=== PATIENT | male | born 1980 | race Caucasian/White ===

== ENCOUNTER 2017-03-05 20:17 | Emergency (ER) | payer SELFPAY ==
--- NOTE | 2017-03-05 20:34 | EDM.PDOC ---
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 Past medical history: As per history of present illness and as reviewed below otherwise noncontributory. Surgical history: As per history of present illness and as reviewed below otherwise noncontributory. Social history: No reported history of drug or alcohol abuse. Family history: As per history of present illness and as reviewed below otherwise noncontributory. Physical exam: Alert and oriented male answering questions appropriately speaking in full sentences HEENT: Atraumatic, normocehpalic, pupils reactive, negative for conjunctival pallor or scleral icterus, mucous membranes moist, throat clear, neck supple, nontender, trachea midline. Lungs: Clear to auscultation, breath sounds equal bilaterally, chest non tender. Heart: S1S2, regular, negative for clicks, rubs, or JVD. Abdomen: Soft, nondistended, nontender. Negative for masses or hepatossplenmegaly. Negative for costovertebral tenderness. Pelvis: Stable nontender. Genitourinary: Deferred. Rectal: Deferred Extremities: Atraumatic, negative for cords or calf pain. Neurovascular unremarkable. Neuro: Awake, alert, oriented. Cranial nerves II through XII unremarkable. Cerebellum unremarkable. Motor and sensory unremarkable throughout. Exam nonfocal. Patient is refusing sutures at this time. Mastisol was utilized then Steri- Strips. Good alignment was achieved Diagnostics: [X-ray thumb] negative for any fracture or dislocation Therapeutics: [] Impression: [Burst laceration] Plan: [Keep area clean and dry do not remove the Steri-Strips left them come loose on her own We'll have referral to Dr. Norma Ryan for follow up] Ibuprofen as needed for discomfort Definitive disposition and diagnosis as appropriate pending reevaluation and review of above. Onset: Today, Sudden Duration: Hour(s): Location: Reports: Upper Extremity, Right Quality: Reports: Stabbing Severity: Moderate Improves with: Reports: None Worsens with: Reports: None Associated Symptoms: Reports: No Other Symptoms Right Hand Pain Score (Numeric/FACES): 2 - Related Data Allergies Allergy/AdvReac Type Severity Reaction Status Date / Time Penicillins Allergy Other Verified 03/05/17 20:26 Home Meds: Home Meds . [No Known Home Meds] 03/05/17 [History] Past Medical History HEENT History: Reports: None Cardiovascular History: Reports: None Respiratory History: Reports: None Gastrointestinal History: Reports: None Genitourinary History: Reports: None Musculoskeletal History: Reports: None Neurological History: Reports: None Psychiatric History: Reports: None Endocrine/Metabolic History: Reports: None Hematologic History: Reports: None Immunologic History: Reports: None Oncologic (Cancer) History: Reports: None Dermatologic History: Reports: None - Infectious Disease History Infectious Disease History: Reports: None - Past Surgical History Head Surgeries/Procedures: Reports: None HEENT Surgical History: Reports: Tonsillectomy GI Surgical History: Reports: None Male Surgical History: Reports: None Endocrine Surgical History: Reports: None Neurological Surgical History: Reports: None Musculoskeletal Surgical History: Reports: None Social & Family History - Tobacco Use Smoking Status *Q: Current Every Day Smoker Years of Tobacco use: 18 Packs/Tins Daily: 0.5 - Caffeine Use Caffeine Use: Reports: Coffee, Soda - Recreational Drug Use Recreational Drug Use: No Review of Systems - Review of Systems Review Of Systems: ROS reveals no pertinent complaints other than HPI. ED EXAM, GENERAL - Physical Exam Exam: See Below (see dictation) ED TRAUMA EXTREMITY PROCEDURES - Laceration/Wound Repair Right Posterior Finger Lac/Wound Length In cm: 2 Appearance: Subcutaneous, Clean Distal NVT: Neuro & Vascular Intact, No Tendon Injury Anesthetic Type: Digital Local Anesthesia - Lidocaine (Xylocaine): 1% Plain Local Anesthetic Volume: 4cc Skin Prep: Chlorhexidine (Hibiciens), Saline Exploration/Debridement/Repair: Wound Explored, In a Bloodless Field, Explored to Base Closed With: Steri-Strips Drain Placement: No Sterile Dressing Applied: Nurse Tetanus Status Addressed: Yes (Last tetanus injection 2 years ago) Complications: No Course - Vital Signs Last Recorded V/S: Last Vital Signs Temp 36.1 C 03/05/17 20:18 Pulse 88 03/05/17 20:18 Resp 17 03/05/17 20:18 BP 128/73 03/05/17 20:18 Pulse Ox 99 03/05/17 20:18 - Orders/Labs/Meds Orders: Active Orders 24 hr Category Date Time Status Fingers Thumb Rt F5 [CR] Stat Exams 03/05/17 20:32 Taken Meds: Medications Discontinued Medications Generic Name Dose Route Start Last Admin Trade Name Garcia PRN Reason Stop Dose Admin Bacitracin 1 dose 03/05/17 21:06 03/05/17 21:16 Bacitracin Oint 1 Gm TOP 03/05/17 21:07 1 dose ONETIME ONE Administration Bacitracin Confirm 03/05/17 21:08 03/05/17 21:17 Bacitracin Oint 1 Gm Administered 03/05/17 21:09 Not Given Dose 1 dose .ROUTE .STK-MED ONE Lidocaine HCl 20 ml 03/05/17 21:06 03/05/17 21:16 Xylocaine 1% INJECT 03/05/17 21:07 5 ml ONETIME ONE Administration Lidocaine HCl Confirm 03/05/17 21:08 03/05/17 21:17 Xylocaine 1% Administered 03/05/17 21:09 Not Given Dose 20 ml .ROUTE .STK-MED ONE Departure - Departure Time of Disposition: 21:32 Disposition: Home, Self-Care 01 Condition: Good Clinical Impression: Laceration - Discharge Information Instructions: Crush Injury, Fingers or Toes, [id number] Referrals: PCP,None [Primary Care Provider] - Macie Ryan MD [Physician] - Forms: ED Department Discharge Additional Instructions: The following information is given to patients seen in the emergency department who are being discharged to home. This information is to outline your options for follow-up care. We provide all patients seen in our emergency department with a follow-up referral. The need for follow-up, as well as the timing and circumstances, are variable depending upon the specifics of your emergency department visit. If you don't have a primary care physician on staff, we will provide you with a referral. We always advise you to contact your personal physician following an emergency department visit to inform them of the circumstance of the visit and for follow-up with them and/or the need for any referrals to a consulting specialist. The emergency department will also refer you to a specialist when appropriate. This referral assures that you have the opportunity for followup care with a specialist. All of these measure are taken in an effort to provide you with optimal care, which includes your followup. Under all circumstances we always encourage you to contact your private physician who remains a resource for coordinating your care. When calling for followup care, please make the office aware that this follow-up is from your recent emergency room visit. If for any reason you are refused follow-up, please contact the [facility] emergency department at and asked to speak to the emergency department charge nurse. Follow-up with Dr. Norma Ryan in one week Her clinic will call you to arrange appointment [facility] - [facility] Surgery Professional [address], [address] [place] [address] Prescription for Keflex 500mg 3 times a day 7 days - My Orders Last 24 Hours: My Active Orders 03/05/17 20:32 Fingers Thumb Rt F5 [CR] Stat - Assessment/Plan Last 24 Hours: My Active Orders 03/05/17 20:32 Fingers Thumb Rt F5 [CR] Stat
[2017-03-05] MEDS ORDERED: Lidocaine 1% 20 ML MDV INJECT ONE (21:06)
[2017-03-05] MEDS ORDERED: Bacitracin Oint 1 GM U/D Packet ONE (21:08)
[2017-03-05] MEDS ORDERED: Lidocaine 1% 20 ML MDV ONE (21:08)
[2017-03-05] MEDS: Bacitracin Oint 1 GM U/D Packet TOP ONE ×2 (21:16→21:42)
[2017-03-06 03:00] VITALS: BP 125/70
--- NOTE | 2017-03-06 18:07 | CR ---
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 Site : 1980 Study: XRay Extremity thumb [id number]/27/2017 8:53:32 PM Ordering Physician: Doctor Turner Final Report: INDICATION: crushing injury INDICATION: Crush injury to right thumb. TECHNIQUE: Three view. FINDINGS: Gas and soft tissue defect of the distal right thumb is identified. No acute fracture is seen of the right thumb. The joint spaces appear to be intact. IMPRESSION: Soft tissue defect noted of the right thumb. No acute fracture or dislocation is identified of the right thumb. Dictated by Jose Michel MD @ 03/05/2017 9:16:32 PM Dictated by: Jose Michel MD @ 03/05/2017 21:16:42 (Electronic Signature) Report Signed by Proxy. DASHA
== END 2017-03-05 21:42 | disposition home or self-care (01) ==
LOC: MW.ED 20:17
DX: S61.011A Laceration without foreign body of right thumb without damage to nail, initial encounter (principal); F17.210 Nicotine dependence, cigarettes, uncomplicated; Z88.0 Allergy status to penicillin; Z98.890 Other specified postprocedural states; W23.0XXA Caught, crushed, jammed, or pinched between moving objects, initial encounter; Y92.69 Other specified industrial and construction area as the place of occurrence of the external cause; Y99.0 Civilian activity done for income or pay
CPT/HCPCS: 73140-26-F5; 73140-F5; 99283